=== PATIENT | male | born 1975 | race Caucasian/White ===

== ENCOUNTER 2021-08-19 16:06 | Outpatient (CLI) | payer BC | END 2021-08-19 16:07 | disposition home or self-care (01) | LOC: BICCT 16:06 | PROVIDERS: ATTEND Family Medicine | DX: N20.2 Calculus of kidney with calculus of ureter (principal) | CPT/HCPCS: 74176 ==

== ENCOUNTER 2021-09-15 11:31 | Outpatient (CLI) | payer BC | END 2021-09-15 11:32 | disposition home or self-care (01) | LOC: BICRAD 11:31 | PROVIDERS: ATTEND Urology | DX: N20.0 Calculus of kidney (principal) | CPT/HCPCS: 74018 ==